=== PATIENT | female | born 1980 | race Caucasian/White ===

== ENCOUNTER 2018-11-26 01:18 | Emergency (ER) | payer MEDICARE, MEDICAID ==
[2018-11-26 01:28] VITALS: O2SAT 97
--- NOTE | 2018-11-26 03:05 | C.PDOC ---
History Of Present Illness 38 year old female with Hx of autism on zoloft, as per siblings patient recently had her dose of zoloft doubled and since then has had intermittent vomiting. Patient is nonverbal, offers no complaints. Family reports patient is able to tolerate fluids and certain foods but seems nauseous and vomits when anxious, her body will stiffen up and she will vomit. As per family patient does not appear to be in any pain and does not have fever or URI symptoms. Time Seen by Provider: 11/26/18 02:24 Chief Complaint (Nursing): Anxiety History Per: Family History/Exam Limitations: no limitations Onset/Duration Of Symptoms: Days, Intermittent Episodes Current Symptoms Are (Timing): Still Present Past Medical History Reviewed: Historical Data, Nursing Documentation, Vital Signs Vital Signs: Last Vital Signs Temp 98.2 F 11/26/18 01:27 Pulse 120 H 11/26/18 01:27 Resp 23 11/26/18 01:27 BP 107/80 11/26/18 01:27 Pulse Ox 97 11/26/18 01:27 - Medical History PMH: Anxiety Family History: States: Unknown Family Hx - Social History Hx Alcohol Use: No Hx Substance Use: No - Immunization History Hx Tetanus Toxoid Vaccination: Yes Hx Influenza Vaccination: Yes Hx Pneumococcal Vaccination: Yes Review Of Systems Review Of Systems: ROS cannot be obtained secondary to pt's inabilty to answer questions. Physical Exam - Physical Exam Appears: Well, Non-toxic, No Acute Distress, Other (Sitting with legs crossed on stretcher, nonverbal but alert) Skin: Normal Color, Warm Head: Atraumatic, Normacephalic Eye(s): bilateral: Normal Inspection Oral Mucosa: Moist Neck: Normal, Supple Chest: Symmetrical, No Tenderness Cardiovascular: Rhythm Regular Respiratory: Normal Breath Sounds, No Rales, No Rhonchi, No Wheezing Gastrointestinal/Abdominal: Soft, No Tenderness Neurological/Psych: Other (Awake, alert, appropriate as per family) ED Course And Treatment O2 Sat by Pulse Oximetry: 97 (Room air) Pulse Ox Interpretation: Normal Progress Note: Zofran odt administered. Patient taking PO fluids here and tolerating, family advised to continue zofran odt at home for vomiting, zantac chewable for possible gerd, and advised to speak to primary for possible reaction to higher dose of zoloft. Disposition Counseled Patient/Family Regarding: Diagnosis, Rx Given - Disposition Disposition: HOME/ ROUTINE Disposition Time: 03:00 Condition: STABLE Additional Instructions: Please follow up with PMD Use zofran as needed Zantac daily Return to ER if worse Prescriptions: Ondansetron ODT [Zofran ODT] 1 odt PO BID PRN #6 odt PRN Reason: Nausea/Vomiting Ranitidine HCl [Zantac] 150 mg PO DAILY #20 tablet Instructions: Anxiety, Adult (DC), Nausea and Vomiting, Child (DC) Forms: [facility] (Angolan) - Clinical Impression Clinical Impression: Vomiting, Anxiety - PA / [employer] / Resident Statement MD/DO has reviewed & agrees with the documentation as recorded. - Scribe Statement The provider has reviewed the documentation as recorded by the Simonibteena Andrade All medical record entries made by the Simonibteena were at my direction and personally dictated by me. I have reviewed the chart and agree that the record accurately reflects my personal performance of the history, physical exam, medical decision making, and the department course for this patient. I have also personally directed, reviewed, and agree with the discharge instructions and disposition.
[2018-11-26 03:20] VITALS: BP 118/81; PULSE 100; RESP 16; TEMP 98.3
== END 2018-11-26 03:20 | disposition home or self-care (01) ==
LOC: C.ER 01:18
DX: R11.10 Vomiting, unspecified (principal); F41.9 Anxiety disorder, unspecified